=== PATIENT | female | born 1985 | race African-American/Black ===

== ENCOUNTER 2016-10-28 15:24 | Inpatient (IN) | payer MEDICAID, OTHER ==
[~2016-10-28] VITALS: Ht 165.1 cm; Wt 79.4 kg
[2016-10-29] MEDS ORDERED: Magnesium Hydroxide 10 mL Oral Concentration PO PRN (00:50)
[2016-10-29] MEDS ORDERED: LORazepam 1 mg Tablet PO PRN (00:50)
[2016-10-29] MEDS ORDERED: diphenhydrAMINE 50 mg Capsule PO PRN (00:50)
[2016-10-29] MEDS ORDERED: Alum-Mag Hydrox-Simeth 30 mL Suspension PO PRN (00:50)
[2016-10-29] MEDS ORDERED: Benzocaine-Menthol Lozenge 2/Pkg PO PRN (00:50)
[2016-10-29] MEDS ORDERED: Haloperidol 5 mg/mL Inj IM PRN (00:50)
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
[2016-10-29] MEDS ORDERED: QUET100T PO (04:55)
[2016-10-29] MEDS ORDERED: ZOLP5TAB6 PO (04:55)
[2016-10-29] MEDS ORDERED: PREN-94 PO (04:55)
[2016-10-29] MEDS ORDERED: SERT100T PO (04:55)
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
[2016-10-29 16:34] VITALS: BP 105/70; PULSE 90; RESP 14
--- NOTE | 2016-10-29 18:04 | NUR ---
Dixonac Operator/Counselor S:"I'm not an invalid, even though he wants me to think I am." O: Patient denies SI or HI, reports visual hallucinations, and did not rate anxiety or depression. A:Patient is cooperative, pleasant, paranoid, anxious, delusional, unkempt. P:Follow care plan and coordinate with outpatient providers.
--- NOTE | 2016-10-29 18:05 | NUR ---
[id number]. nurs. S: "I am just done, I can't do it anymore, I need to live separately, I can live in the condo, and he can have the house it is only 10 minutes away, he has not dealt with issues from his first , it's power and control, he keeps yelling at me "you are an invalid!" and tells me to stay in bed all the time I don't have any say.. O: Pt talking of her current pxs with spouse at home and verbalizing need and desire to separate/divorce. Pt reports that she has resources to live in own house and co parent. Pt's parent visiting [facility] and talking about caring for pt in [place]. Pt with bright affect, mostly, quite verbal, appears to want to be provided with care by family in [place]. [place]. or considering this as plan Pt wanting family to be involved in care and informed, signed TAY for mother. Pt out on unit attending grps. P:GUILHERME
--- NOTE | 2016-10-30 03:50 | NUR ---
Nursing Noc Patient out in common area visiting with family discussing post discharge possibilities. Appears to have good insight and articulate. Denies A/V hallucinations and appears slightly depressed. Zero manic like behavior this shift. Patient achieving adequate sleep noted by Q15 minute safety checks. Continuing to monitor mood, behavior and emotional state. CP
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
--- NOTE | 2016-10-30 17:38 | NUR ---
[facility] Day Shift *NAME ALERT* Pt prefers to be called "Shwetha." Pt maintained behavioral control throughout the shift. Pt affect appears mostly flat, brighter when engaged with staff and peers. Pt appears to attend to internal stimuli to various degrees of intensity throughout the shift. Pt spends most of the shift engaging in unit activities and interacting with peers. Pt is appropriate with staff and peers when active on the unit. Pt occasionally has difficulty interacting with peers when engaged, due to internal stimuli interference. Pt attended community meeting in the AM. Pt attended all meals and ate approx 100% of all meals.
--- NOTE | 2016-10-30 17:51 | NUR ---
Cotton Farmworker/Counselor S:"I only hear my own voice." O: Patient denies SI or HI, denies any auditory or visual hallucinations, no anxiety and no depression. A: Patient is tangential, anxious, slightly disheveled. Needs to be redirected often, especially in group. P: Follow care plan and coordinate with outpatient providers.
[2016-10-30 17:55] VITALS: BP 121/75; PULSE 104; RESP 20
--- NOTE | 2016-10-30 18:34 | NUR ---
[id number]. nurs. S:"I should feel more sorrowful shouldn't I..? O: Pt appearing confused in the morning walking from doorway to doorway down [address] and then saying she had to go back to room, came out again to eat breakfast with sad affect and stated missing her family stating that she had been "groggy" "disoriented" on awaking and still feeling sense of doom that she states comes upon her as night falls. Pt brightening over day and participated in grps, pt stating that she didn't feel balanced and questioning why she did not feel sad later in morning after describing very sad earlier. Pt childlike and seemed to be asking permission to be able to give her self care. Pt talking of discharge planning to go to parents but not to return to spouse. Pt stating feeling anxious and asking for zyprexa and given 5mg at 1643.
--- NOTE | 2016-10-31 05:40 | NUR ---
Nursing Note Promotions Coordinator 11pm to 7am Pt asleep at start of shift, woke up momentarily to check the time and went back to sleep. Remained asleep for the duration. No issues reported or observed. Monitored pt. with q 15 minute face checks for safety location and accountability.
--- NOTE | 2016-10-31 10:22 | PCM.DIMED ---
Discharge Instructions Date of Service Oct 31, 2016 Dates of Hospitalization Oct 29, 2016 at 00:33 Discharge Diagnosis Discharge Diagnosis Mood DO NOS PTSD chronic Anxiety DO NOS Borderline and Histrionic Personality Diet Discharge Diet: No restrictions Activity Discharge Activity: No restrictions Dariel Cooper DO Oct 31, 2016 10:22
[2016-10-31] MEDS ORDERED: OLAN10TA19 PO (10:24)
[2016-10-31] MEDS ORDERED: HYDR50CA3 PO (10:24)
[2016-10-31 10:25] VITALS: BP 123/79; PULSE 92; RESP 18
--- NOTE | 2016-10-31 14:47 | NUR ---
pt has been in and out of her room has had a good appettie and is getting ready for discharge this evening has been pleasant
--- NOTE | 2016-10-31 16:21 | NUR ---
Log Handling Equipment Operator/Counselor S:"Lost and disoriented this morning but I am doing good now." O: Patient reported no SI or HI, auditory or visual hallucinations. She reported her anxiety and depression as low. Patient slept 6.25+ hours per staff report. Patients mood was good and she reported "Im doing good now". A:Patient appeared to be social today she was out and about through the day. She worked with nurse case manager to coordinate her discharge. P:Follow care plan and coordinate with outpatient providers. Patient has been scheduled for follow up appts upon discharge. She has been provided with a safety plan. Patient was given all necessary discharge paperwork. Patient is returning to her parents house and will be picked up by her mother for transport back to their residence.
--- NOTE | 2016-10-31 18:36 | NUR ---
Nursing Discharge Note: Patient cooperative with discharge process. Acknowledges understanding of d/c instructions and has a copy with them upon leaving unit at 1810. Belongings accounted for and with patient. Prescriptions faxed to patients pharmacy at [facility]. Patient denies harmful thoughts and hallucinations at this time.
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
== END 2016-10-31 18:10 | disposition home or self-care (01) | DRG 885 ==
LOC: MHC 10-29 00:33
PROVIDERS: ADMIT Psychiatry & Neurology Psychiatry; ATTEND Psychiatry & Neurology Psychiatry
DX: F39 Unspecified mood [affective] disorder (principal); F60.3 Borderline personality disorder; F43.12 Post-traumatic stress disorder, chronic; F60.4 Histrionic personality disorder